=== PATIENT | male | born 1995 | race Hispanic/Latino ===

== ENCOUNTER 2021-11-25 13:16 | Emergency (ER) | payer SELFPAY ==
[2021-11-25 14:42] LABS: Hemoglobin 15.1 g/dL (14.0-18.0); Mean Corpuscular Volume 90.9 fL (78.0-98.0); Platelet Count 354 thou/uL (130-400); Red Blood Cell (RBC) Count 5.04 mill/uL (4.70-6.10); White Blood Cell (WBC) Count 3.8 thou/uL (4.8-10.8)
[2021-11-25 15:00] LABS: Band 1 % (5-11); Lymphocytes 52 % (21-51); MDiff Complete? YES; Monocytes 8 % (0-10); Neutrophil 37 % (42-75); Platelet Morphology Comment Appears Adequate; RBC Morphology Normal; Reactive Lymphocytes 1 % (0-10)
[2021-11-25 15:18] LABS: ALT (SGPT) 20 U/L (8-55); AST (SGOT) 28 U/L (5-34); Albumin 4.1 g/dL (3.5-5.0); Alkaline Phosphatase 59 U/L (40-110); Anion Gap 12 mmol/L (10-20); BUN (Urea Nitrogen) 13 mg/dL (8.9-20.6); Bilirubin, Total 0.7 mg/dL (0.2-1.2); Calc. Creatinine Clearance 0 mL/min (70-130); Calcium 9.3 mg/dL (7.8-10.44); Carbon Dioxide 25 mmol/L (22-29); Chloride 106 mmol/L (98-107); Glucose 113 mg/dL (70-105); Lipase 33 U/L (8-78); Potassium 4.1 mmol/L (3.5-5.1); Protein, Total 7.1 g/dL (6.0-8.3); Sodium 139 mmol/L (136-145)
== END 2021-11-25 16:15 ==
LOC: ERS 13:16
DX: R07.81 Pleurodynia (principal)
CPT/HCPCS: 36415; 71045; 80053; 83690; 84484; 85025; 85379; 93005

== ENCOUNTER 2022-02-06 03:47 | Emergency (ER) | payer OTHER, SELFPAY ==
[2022-02-06] MEDS ORDERED: Morphine 2 MG/ML VIAL ONE (04:06)
[2022-02-06] MEDS ORDERED: Boostrix 0.5 ML (Tdap) VIAL (>/=7 yrs of age) ONE (04:06)
[2022-02-06] MEDS ORDERED: CEFAZOLIN 2 GM VIAL ONE (04:06)
== END 2022-02-06 06:52 ==
LOC: ERS 03:47
DX: S09.90XA Unspecified injury of head, initial encounter (principal); S01.23XA Puncture wound without foreign body of nose, initial encounter; M79.641 Pain in right hand; R56.9 Unspecified convulsions; X99.8XXA Assault by other sharp object, initial encounter
CPT/HCPCS: 70450; 70486; 72125; 90471; 90715; 96365; 96375; J0690; J2270